=== PATIENT | male | born 1955 | race African-American/Black ===

== ENCOUNTER 2023-05-27 16:26 | Inpatient (IN) | payer OTHER ==
[2023-05-27 17:45] VITALS: BMI 20.5
[2023-05-27] MEDS ORDERED: diazePAM 5 MG TABLET PO PRN (19:57)
[2023-05-27] MEDS ORDERED: BENZOCAINE/MENTHOL (CHLORASEPTIC ) LOZENGE MM PRN (20:01)
[2023-05-27] MEDS ORDERED: ONDANSETRON *ODT* 4 MG TABLET SL PRN (20:01)
[2023-05-27] MEDS ORDERED: BISMUTH SUBSALICYLATE 524 MG/30 ML PO PRN (20:01)
[2023-05-27] MEDS ORDERED: LOPERAMIDE HCL 2 MG CAPSULE PO PRN (20:01)
[2023-05-27] MEDS ORDERED: POLYETHYLENE GLYCOL (HEALTHYLAX) 3350 17 GM PACKET PO PRN (20:01)
[2023-05-27] MEDS ORDERED: guaiFENesin 600 MG TABLET.ER (FP) PO PRN (20:01)
[2023-05-27] MEDS ORDERED: P-EPHED 60MG/TRIPROLIDI 2.5MG TABLET PO PRN (20:01)
[2023-05-27] MEDS ORDERED: MAG HYDROX/AL HYDROX/SIMETH 30 ML UNIT-DOSE CUP PO PRN (20:01)
[2023-05-27] MEDS ORDERED: ACETAMINOPHEN 325 MG TABLET (FP) PO PRN (20:01)
[2023-05-27] MEDS ORDERED: MAGNESIUM HYDROX 2400MG/30ML ORAL SUSPENSION 30 ML CUP PO PRN (20:01)
[2023-05-27] MEDS ORDERED: BENZONATATE 200 MG CAPSULE PO PRN (20:01)
[2023-05-27] MEDS ORDERED: IBUPROFEN 400 MG TABLET (FP) PO PRN (20:01)
[2023-05-27] MEDS: diazePAM 5 MG TABLET PO SCH (22:43)
[2023-05-27] MEDS: THIAMINE HCL 100 MG TABLET (FP) PO SCH (22:43)
[2023-05-27] MEDS: MELATONIN 5 MG TABLETS PO SCH (22:43)
[2023-05-28] MEDS: PRENATAL VITAMINS W/ FOLIC ACID TABLET (FP) PO SCH (10:20)
[2023-05-28] MEDS: amLODIPine BESYLATE 5 MG TABLET (FP) PO SCH (10:41)
[2023-05-28 11:26] LABS: HEMATOCRIT 37.3 % (35.4-49); HEMOGLOBIN 12.3 GM/dL (11.7-16.9); MCH 32.9 pg (25.7-33.7); MCHC 32.9 g/dl (32.0-35.9); MEAN CELL VOLUME 99.9 fl (80-96); MEAN PLT VOLUME 7.6 fl (7.5-11.1); PLATELET COUNT 139 10^3/uL (134-434); RBC 3.74 M/mm3 (4.00-5.60); RDW 14.2 % (11.9-15.9); WHITE BLOOD COUNT 3.9 K/mm3 (4.0-10.0)
[2023-05-28 12:02] LABS: POTASSIUM 3.9 mmol/L (3.5-5.1)
[2023-05-28 12:08] LABS: CALCIUM 9.8 mg/dL (8.5-10.1)
[2023-05-28 12:09] LABS: ALBUMIN 3.6 g/dl (3.4-5.0); BLOOD UREA NITROGEN 15.9 mg/dL (7-18)
[2023-05-28 12:11] LABS: CREATININE 1.1 mg/dL (0.55-1.3)
[2023-05-28 12:13] LABS: BILIRUBIN,TOTAL 0.9 mg/dL (0.2-1); TOT PROT 6.8 g/dl (6.4-8.2)
[2023-05-29] MEDS: diazePAM 5 MG TABLET PO SCH (05:30)
[2023-05-30] MEDS: diazePAM 5 MG TABLET PO SCH (05:39)
[2023-05-31] MEDS: diazePAM 5 MG TABLET PO ONE (05:39)
[2023-05-31 09:42] VITALS: RESP 18; TEMP 97.6
[2023-05-31 13:17] VITALS: BP 120/75; PULSE 92
== END 2023-05-31 14:05 | disposition home or self-care (01) | DRG 897 ==
LOC: YASAS 16:26 → Y6N 20:58
PROVIDERS: ADMIT Allergy & Immunology; ATTEND Surgery
PROC: HZ2ZZZZ Detoxification Services for Substance Abuse Treatment (ICD-10-PCS; principal; 2023-05-29)
DX: F10.230 Alcohol dependence with withdrawal, uncomplicated (principal); I10 Essential (primary) hypertension; Z28.310 Unvaccinated for COVID-19; Z28.9 Immunization not carried out for unspecified reason
CPT/HCPCS: 36415; 80053; 80305; 85027; 86780; 87635; 87811; 93005; 93010